=== PATIENT | male | born 1990 | race African-American/Black ===

== ENCOUNTER 2018-12-19 06:53 | Emergency (ER) | payer SELFPAY ==
[~2018-12-19] VITALS: Ht 175.3 cm; Wt 83.9 kg
[~2018-12-19 06:53] MED LIST: NAPR-682 PO; ORPH100T PO
[2018-12-19 07:00] VITALS: BP 114/68
[2018-12-19] MEDS ORDERED: CARB-100 OT (07:17)
--- NOTE | 2018-12-19 07:18 | PHYS DOC ---
Past Medical History Past Medical History: No Pertinent History Past Surgical History: No Surgical History Alcohol Use: None Drug Use: None Adult General Chief Complaint Chief Complaint: EARACHE/EAR PAIN HPI HPI Patient is a 28 year old male who presents with left ear pain. This is been present for the past several days. No relief with olive oil that the patient read about on the Internet to help with earwax. Patient has decreased hearing. Denies any drainage from the ear. Denies any swimming. Denies any fever. Nothing seems to make the discomfort better or worse.[] Review of Systems Review of Systems Constitutional: Denies fever or chills [] Eyes: Denies change in visual acuity, redness, or eye pain, see history of present illness [] HENT: Denies nasal congestion or sore throat [] Respiratory: Denies cough or shortness of breath [] Cardiovascular: No chest pain or palpitations[] GI: Denies abdominal pain, nausea, vomiting, bloody stools or diarrhea [] : Denies dysuria or hematuria [] Musculoskeletal: Denies back pain or joint pain [] Integument: Denies rash or skin lesions [] Neurologic: Denies headache, focal weakness or sensory changes [] Endocrine: Denies polyuria or polydipsia [] All other systems were reviewed and found to be within normal limits, except as documented in this note. Current Medications Current Medications Current Medications Medications (Trade) Dose Ordered Sig/[facility] Start Time Stop Time Status Last Admin Dose Admin Carbamide Peroxide (Debrox) 5 drop 1X ONCE 12/19/18 08:00 12/19/18 08:01 DC 12/19/18 07:36 5 DROP Allergies Allergies Allergies Coded Allergies Type Severity Reaction Last Updated Verified No Known Drug Allergies 07/12/16 No Physical Exam Physical Exam Constitutional: Well developed, well nourished, no acute distress, non-toxic appearance. [] HENT: Normocephalic, atraumatic, bilateral external ears normal, no pain with tragus tug, canal appears without edema. There is significant cerumen bilateral ears obscuring the tympanic membrane, oropharynx moist, no oral exudates, nose normal. [] Eyes: PERRLA, EOMI, conjunctiva normal, no discharge. [] Neck: Normal range of motion, no tenderness, supple, no stridor. [] Cardiovascular:Heart rate regular rhythm, no murmur [] Lungs & Thorax: Bilateral breath sounds clear to auscultation [] Abdomen: Not examined. [] Skin: Warm, dry, no erythema, no rash. [] Back: No tenderness, no CVA tenderness. [] Extremities: No tenderness, no cyanosis, no clubbing, ROM intact, no edema. [] Neurologic: Alert and oriented X 3, normal motor function, normal sensory function, no focal deficits noted. [] Psychologic: Affect normal, judgement normal, mood normal. [] Current Patient Data Vital Signs Vital Signs Date Time Temp Pulse Resp B/P (MAP) Pulse Ox O2 Delivery O2 Flow Rate FiO2 12/19/18 07:00 98.4 81 16 114/68 (83) 99 Room Air 98.4 EKG EKG [] Radiology/Procedures Radiology/Procedures [] Course & Med Decision Making Course & Med Decision Making Pertinent Labs and Imaging studies reviewed. (See chart for details) ED course: Patient arrived, was placed in bed, tolerated exam well. Patient had irrigation with Debrox of his left ear canal. After this irrigation, there was no evidence of an otitis media. There was minor erythema of the canal itself. There was no pain with tragus tug. Patient was discharged in improved condition. Manuel decision making: There is no evidence of otitis media, mastoiditis, nor otitis externa. This appears to have been a cerumen impaction that is now resolved.[] Dragon Disclaimer Dragon Disclaimer This electronic medical record was generated, in whole or in part, using a voice recognition dictation system. Departure Departure Impression: Primary Impression: Cerumen impaction Disposition: 01 HOME, SELF-CARE Condition: IMPROVED Referrals: NO PCP (PCP) Patient Instructions: Cerumen Impaction Additional Instructions: Follow-up with your regular doctor in 2 days. If you do not have a regular doctor, list of local clinics will be provided for you. Return to the ER if worsening pain, difficulty hearing, drainage from the ear, fever of more than 101, or any other concerns. Scripts Carbamide Peroxide (Murine Ear Drops) 15 Ml Drops 5 DROP OT BID for 5 Days, DROP when the bubbling stops, rinse out ear canal with warm water in the shower. Prov: MODSETO NASH DO 12/19/18 Problem Qualifiers Primary Impression: Cerumen impaction Laterality: unspecified laterality Qualified Codes: H61.20 - Impacted cerumen, unspecified ear MODESTO NASH DO Dec 19, 2018 07:17
[2018-12-19] MEDS ORDERED: CARBAMIDE PEROXIDE 6.5% OTIC SOLUTION 15ML BOTTLE. AS ONE (08:00)
== END 2018-12-19 09:15 | disposition home or self-care (01) ==
LOC: ER 06:53
DX: H61.23 Impacted cerumen, bilateral (principal)
CPT/HCPCS: 69209; 99282

== ENCOUNTER 2021-09-26 12:29 | Emergency (ER) | payer OTHER ==
[~2021-09-26] VITALS: Ht 172.7 cm; Wt 92.0 kg
[~2021-09-26 12:29] MED LIST changes: +CARB-100 OT
[2021-09-26] MEDS ORDERED: DIPH,PERTUSS(ACELL),TET VAC/PF 0.5 ML SYRINGE. VAX IM ONE (13:15)
[2021-09-26] MEDS ORDERED: EYE-STREAM OPHTH SOLUTION 120 ML BOTTLE. OD ONE (13:15)
[2021-09-26] MEDS ORDERED: IBUPROFEN 200 MG TABLET. PO ONE (13:15)
[2021-09-26] MEDS ORDERED: TETRACAINE 0.5% OPHTH SOLUTION 4ML BOTTLE. OD ONE (13:15)
[2021-09-26] MEDS ORDERED: FLUORESCEIN OPHTH TEST STRIP. OD ONE (13:15)
[2021-09-26] MEDS ORDERED: ERYTHROMYCIN 0.5% OPHTH OINTMENT 1GM TUBE. OD ONE (14:45)
[2021-09-26] MEDS ORDERED: ERYT1OIN3 OD (14:49)
--- NOTE | 2021-09-26 14:49 | PHYS DOC ---
Past Medical History Past Medical History: No Pertinent History (LEIGHANN PETERS APRN) Past Surgical History: No Surgical History (LEIGHANN PETERS APRN) Smoking Status: Never Smoker Alcohol Use: None Drug Use: None (LEIGHANN PETERS APRN) General Adult EDM: Chief Complaint: EYE PROBLEMS HPI: HPI: Patient is a 31-year-old male presents emergency department complaining of right eye redness and discomfort for the past 2 days. Patient reports 4 days ago he was cleaning overhead exhaust hoods with a decrease or was sprayed into his right eye. Patient reports he immediately cleansed with saline, did not seek medical care. He had no vision changes at that time, noticed his eye started turning red 2 days later and presents to the emergency department for evaluation today. Patient denies visual changes or visual disturbances today, reports a 1- 2 out of 10 pain. Patient states it feels like there is sand in his eyes. Patient denies any direct trauma to his eye. Patient patient states he was not wearing eye protection at the time of the incident. Patient reports his last tetanus immunization was greater than 5 years ago. Patient denies allergies to medications states he takes no prescription medications at home. Patient denies other physical complaints or physical concerns. (LEIGHANN PETERS APRN) Review of Systems: Review of Systems: 14 body systems of review of systems have been reviewed. See HPI for pertinent positives and negative responses, otherwise all other systems are negative, nonpertinent or noncontributory. Constitutional: Negative except as outlined in HPI above. Skin: Negative except as outlined in HPI above. Eyes: Negative except as outlined in HPI above. HENT: Negative except as outlined in HPI above. Respiratory: Negative except as outlined in HPI above. Cardiovascular: Negative except as outlined in HPI above. GI: Negative except as outlined in HPI above. : Negative except as outlined in HPI above. Musculoskeletal: Negative except as outlined in HPI above. Integument: Negative except as outlined in HPI above. Neurologic: Negative except as outlined in HPI above. Endocrine: Negative except as outlined in HPI above. Lymphatic: Negative except as outlined in HPI above. Psychiatric: Negative except as outlined in HPI above. (LEIGHANN PETERS APRN) Heart Score: C/O Chest Pain: No Risk Factors: Risk Factors: DM, Current or recent (<one month) smoker, HTN, HLP, family his tory of CAD, obesity. Risk Scores: Score 0 - 3: 2.5% MACE over next 6 weeks - Discharge Home Score 4 - 6: 20.3% MACE over next 6 weeks - Admit for Clinical Observation Score 7 - 10: 72.7% MACE over next 6 weeks - Early Invasive Strategies (LEIGHANN PETERS APRN) Current Medications: Current Medications Medications (Trade) Dose Ordered Sig/[facility] Start Time Stop Time Status Last Admin Dose Admin Balanced Salt Solution (Eye-Stream) 120 ml 1X ONCE 09/26/21 13:15 09/26/21 13:16 DC 09/26/21 13:54 120 ML Diphtheria/ Tetanus/Acell Pertussis (ADACEL TDap SYRINGE) 0.5 ml ONCE ONCE 09/26/21 13:15 09/26/21 13:16 DC Fluorescein Sodium (Ful-Gina) 1 strip 1X ONCE 09/26/21 13:15 09/26/21 13:16 DC 09/26/21 13:54 1 STRIP Ibuprofen (Motrin) 600 mg 1X ONCE 09/26/21 13:15 09/26/21 13:16 DC 09/26/21 13:52 600 MG Tetracaine HCl (Tetracaine) 1 drop 1X ONCE 09/26/21 13:15 09/26/21 13:16 DC 09/26/21 13:54 1 DROP (LEIGHANN PETERS APRN) Allergies: Allergies: Allergies Coded Allergies Type Severity Reaction Last Updated Verified No Known Drug Allergies 07/12/16 No (LEIGHANN PETERS APRN) Physical Exam: PE: Constitutional: Well developed, well nourished, no acute distress, non-toxic appearance. 31-year-old male in no apparent distress. HENT: Normocephalic, atraumatic. Eyes: Conjunctiva normal left eye, no discharge left eye. Conjunctivitis right eye lower and upper eyelid medial canthus without purulent drainage. Positive red light reflex bilaterally, fluorescein Wood's lamp examination did not reveal corneal abrasion. Visual acuity: OS 20/15, OD 20/15, OU 20/15. Neck: Normal range of motion, no stridor. Cardiovascular: No cyanosis appreciated, distal cap refill less than 2 seconds. Lungs & Thorax: Patient is in no respiratory distress, no audible adventitious lung sounds appreciated. Abdomen: Nontender, no abnormalities noted. Skin: Warm, dry, no erythema, no rash. Back: No tenderness, no deformities. Extremities: No tenderness, no cyanosis, no clubbing, ROM intact, no edema. Neurologic: Alert and oriented X 3, normal motor function, normal sensory function, no focal deficits noted. Psychologic: Affect normal, judgement normal, mood normal. (LEIGHANN PETERS APRN) Current Patient Data: Vital Signs: Vital Signs Date Time Temp Pulse Resp B/P (MAP) Pulse Ox O2 Delivery O2 Flow Rate FiO2 09/26/21 13:05 98.1 92 18 140/65 (90) 99 Room Air 98.1 (LEIGHANN PETERS APRN) EKG: EKG: [] (LEIGHANN PETERS APRN) Radiology/Procedures: Radiology/Procedures: [] (LEIGHANN PETERS APRN) Course & Med Decision Making: Course & Med Decision Making Pertinent Labs and Imaging studies reviewed. 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 Patient reports immediate irrigation at time of incident, did not have problems for 2 days and noticed his right eye was turning red and would wake up with a matted yellowish infection in the mornings. Physical examination nonconcerning for corneal abrasion, there was no erosion of the globe appreciated, there is no visual changes, visual acuity intact, no clouding of the cornea or lens, examination consistent with conjunctivitis, discussed with patient will start on erythromycin eye ointment in the ED, strict follow-up with ophthalmology tomorrow, return to ER precautions or concerns reviewed, patient gave verbal understanding of and is amenable to ED discharge planning. Discussed with the patient all findings and diagnostic testing as well as the need to follow-up with their primary care provider for further evaluation and treatment or return to the ED if any new or worsening symptoms. Strict return precautions were also discussed at length, the patient voiced understanding and agreement with the discharge planning. The patient was nontoxic in appearance, in no apparent distress, and hemodynamically stable at the time of disposition. (LEIGHANN PETERS APRN) Course & Med Decision Making I have participated in the care of this patient and I have reviewed and agree with all pertinent clinical information above including history, exam, and recommendations. Dominick Pena DO (DOMINICK PENA DO) Cheryl Disclaimer: Cheryl Disclaimer: This electronic medical record was generated, in whole or in part, using a voice recognition dictation system. (LEIGHANN PETERS APRN) Departure Departure Impression: Primary Impression: Conjunctivitis, right eye Qualified Codes: H10.31 - Unspecified acute conjunctivitis, right eye Additional Impressions: Chemical exposure of eye Need for DTaP vaccine Disposition: HOME / SELF CARE / HOMELESS Condition: GOOD Referrals: JENN ROLDAN (PCP) Dillan BOSWELL MD Patient Instructions: Allergic Conjunctivitis, Bacterial Conjunctivitis Additional Instructions: You were seen today in the emergency department for a reddened and irritated right eye. Your examination did not reveal any damage to the cornea or lens of your eye however it does have an infectious process which you were started on an ointment ophthalmic antibiotic today in the emergency department that you will instill 4 times a day for the next 7 days. I have written you a prescription for this antibiotic please fill and use as directed. I have provided you a eye doctor to follow-up with, please make an appointment and see soon as we discussed. Please wear protective eyewear while using noxious chemicals to clean overhead heads in the future as we discussed. Your tetanus immunization was brought up-to-date today in the emergency department with a medication called Adacel/Tdap, please update your immunization records accordingly. Return to the emergency department for worsening symptoms or other concerns. Thank you for visiting our Emergency Department. It was a pleasure taking care of you today in the emergency department and we appreciate you trusting us with your care. If any additional problems come up don't hesitate to return to visit us. Please follow up with your primary care provider so they can plan additional care if needed and know about the problem that you had. If symptoms worsen come back to the Emergency Department. Any concerning symptoms that start such as chest pain, shortness of air, weakness or numbness on one side of the body, running high fevers or any other concerning symptoms return to the ER. Scripts Erythromycin Base (Erythromycin) 1 Gm Oint...g. 1 GM OD QID for eye infection for 5 Days, #1 MISC 0 Refills Instill 1/2 inch ribbon of ointment to your inner lower right eyelid 4 times a day for the next 5 days. Prov: LEIGHANN PETERS APRN 09/26/21 LEIGHANN PETERS APRN Sep 26, 2021 14:49 DOMINICK PENA DO Sep 26, 2021 15:26
[2021-09-26 15:00] VITALS: BP 145/52
== END 2021-09-26 15:00 | disposition home or self-care (01) ==
LOC: ER 12:29
DX: H10.31 Unspecified acute conjunctivitis, right eye (principal); Z77.098 Contact with and (suspected) exposure to other hazardous, chiefly nonmedicinal, chemicals
CPT/HCPCS: 90471; 90715; 99283